=== PATIENT | female | born 1965 | race Caucasian/White ===

== ENCOUNTER 2022-06-14 12:11 | Emergency (ER) | payer OTHER, SELFPAY ==
[2022-06-14 12:19] VITALS: BP 149/78; PULSE 100; RESP 19; TEMP 38.2; O2SAT 100
--- NOTE | 2022-06-14 12:20 | ED.FEVER ---
HPI - Fever General Chief Complaint: Fever Stated Complaint: Fever/Headache/ Nausea Time Seen by Provider: 06/14/22 12:20 Source: patient Mode of arrival: ambulatory Limitations: no limitations History of Present Illness HPI Narrative: 57-year-old female presents with complaint of headache, neck aching, body aches, fever, fatigue since yesterday. Also reports nausea, decreased appetite. DHas a fever but was not able to take [id number] medication due to feeling nauseated. Did a home COVID test that was negative. Denies chest pain and shortness of breath. No known COVID exposure. All systems reviewed and negative except as noted above. Related Data Home Medications Medication Instructions Recorded Confirmed aspirin 81 mg capsule 81 mg DAILY 06/14/22 06/14/22 Allergies Allergy/AdvReac Type Severity Reaction Status Date / Time Penicillins Allergy Loss of Verified 06/14/22 12:27 Consciousness procaine Allergy Seizure Verified 06/14/22 12:27 Review of Systems Review of Systems: CONSTITUTIONAL: Reports fever,, fatigue, chills, or sweats. EYES: Denies visual changes, redness, or discharge. ENT: Denies rhinorrhea, congestion, sore throat, or otalgia. CARDIOVASCULAR: Denies chest pain, palpitations, or edema. RESPIRATORY: Denies cough or dyspnea. GASTROINTESTINAL: Denies abdominal pain, nausea, vomiting, or diarrhea. GENITOURINARY: Denies dysuria or hematuria. SKIN: Denies rash or itching. MUSCULOSKELETAL: Denies back pain, joint pain. Reports myalgia. NEUROLOGIC: Reports headache. Denies numbness, or weakness. PSYCHIATRIC: Denies anxiety or depression. All other systems reviewed are negative, except as documented in HPI. PMFSH Comments At time of signature, agree with nursing past medical, surgical, social and family history. There is no relevant family history pertinent to the presenting complaint. Exam Narrative: GENERAL: This is a well-nourished, well-developed patient. Patient is ill-appearing but no distress. HEAD: normocephalic, atraumatic. EYES: PERRL. Sclera clear/white. Vision is grossly intact. EARS: External ears normal, auditory canals clear and without drainage, TMs normal without perforation. Hearing grossly intact. NOSE: External nose normal with no obvious nasal discharge, nares without redness, no rhinorrhea. THROAT: Mucous membranes moist, posterior pharynx clear. NECK: Neck supple, non-tender without lymphadenopathy, masses or thyromegaly. CARDIOVASCULAR: Regular rate and rhythm without murmurs, gallops, or rubs. RESPIRATORY: Clear to auscultation. Breath sounds equal bilaterally. No wheezes, rales, or rhonchi. SKIN: warm, Dry, intact with no suspicious lesions or rash, good texture and turgor. NEURO: awake, alert, and oriented to person, place and time. There were no obvious focal neurologic abnormalities. EXTREMITIES: No joint tenderness, effusion, or edema noted. Course Course Level of Care: Express Care Visit Vital Signs Vital signs: Reviewed MDM - Fever MDM Narrative Medical decision making narrative: Patient is aware of diagnosis, understands and agrees to treatment plan. Anticipatory guidance given. Patient agrees to follow-up as directed and is aware of reasons to seek care at the emergency department. Portions of this record may have been created with voice recognition software Negative rapid influenza. COVID PCR pending. Differential Diagnosis Differential diagnosis: Likely viral infection and influenza Discharge Plan Discharge Clinical Impression: Acute viral syndrome Patient Disposition: Home, Self-Care Condition: Stable Instructions: Viral Syndrome (ED) Additional Instructions: Your influenza test was negative today. A COVID PCR test is pending. Quarantine until you know your test results. Continue to take [id number] medications to treat your symptoms such as Tylenol or ibuprofen. Drink plenty of water and rest. If you have shortne
[2022-06-14] MEDS: ONDANSETRON HCL ODT 4 MG TABLET SUBLINGUAL (12:39)
[2022-06-14] MEDS: ACETAMINOPHEN 500 MG TABLET 1000 MG PO (12:58)
[2022-06-14 13:28] VITALS: TEMP 37.6
[2022-06-14 13:38] VITALS: TEMP 37.6
[2022-06-14 19:59] LABS: SARS-CoV-2 RNA PCR Positive
== END 2022-06-14 13:38 | disposition home or self-care (01) ==
PROVIDERS: Emergency Provider Nurse Practitioner Family; PCP Family Medicine
DX: U07.1 COVID-19 (principal); Z90.710 Acquired absence of both cervix and uterus
CPT/HCPCS: 81003; 87804; 99213; A9270; C9803; G0463; U0003; U0005

== ENCOUNTER 2023-01-31 09:42 | Emergency (ER) | payer OTHER, SELFPAY ==
[2023-01-31 09:49] VITALS: BP 151/81; PULSE 80; RESP 20; TEMP 36.2; O2SAT 100
--- NOTE | 2023-01-31 11:22 | ED.URI ---
HPI - URI/Sore Throat General Chief Complaint: Upper Respiratory Infection Stated Complaint: Sore Throat Time Seen by Provider: 01/31/23 11:22 Source: patient, RN notes reviewed and old records reviewed Mode of arrival: ambulatory Limitations: no limitations History of Present Illness HPI Narrative: 57-year-old female who presents to [facility] with complaints of 1 day duration of sore throat, feeling tired, headache, sinus congestion drainage which is clear, chills denies any fevers. Patient reports that she took home COVID test which was negative. Patient reports that she took some NyQuil last night for her symptoms.Patient denies any ill contacts. MD elicited complaint: cough, sore throat, rhinorrhea, nasal congestion and other (headache) Pertinent past history: other (tobacco abuse) Onset (ago): day(s) (1) Pain scale (0-10): 5 Able to tolerate fluids by mouth: Yes Treatments prior to arrival: other (NyQuil) Related Data Allergies Allergy/AdvReac Type Severity Reaction Status Date / Time Penicillins Allergy Loss of Verified 01/31/23 10:00 Consciousness procaine Allergy Seizure Verified 01/31/23 10:00 Review of Systems Review of Systems: CONSTITUTIONAL:Reports malaise, chills, sweats, no fever. EYES: Denies visual changes, redness, or discharge. ENT: Reports rhinorrhea, congestion, sinus pain,no otalgia positive sore throat. CARDIOVASCULAR: Denies chest pain, palpitations, or edema. RESPIRATORY: Reports cough.? Denies dyspnea. GASTROINTESTINAL: Denies abdominal pain, nausea, vomiting, diarrhea SKIN: Denies rash or itching. MUSCULOSKELETAL: Denies myalgia. NEUROLOGIC:Reports headache. All systems reviewed & are unremarkable except as noted in HPI and below [facility] Surgical History Surgical History (Updated 02/02/23 @ 08:33 by Meghan Kong NP) History of hysterectomy Social History Social History (Updated 02/02/23 @ 08:38 by Meghan Kong NP) Smoking packs per day: 0.5 Smoking cigarettes per day: 10.0 Years smoked: 40 Smoking pack-years: 20.00 Smoking status: Current every day smoker Tobacco type: cigarettes Alcohol intake: current Alcohol use details: rare social Substance use type: does not use Living arrangements: with family Gender identity (if verbalized by the patient): Female Comments At time of signature, agree with nursing past medical, surgical, social and family history. There is no relevant family history pertinent to the presenting complaint Exam Narrative: GENERAL: Well-appearing, well-nourished, and in no acute distress. HEAD: Normocephalic EYES: PERRLA, conjunctivae clear ENT: Nares clear, turbinates edematous and erythematous, clear discharge. Mucous membranes moist. TM pearly underwood with dull light reflex bilaterally; no tragal tenderness. Oropharynx erythematous without lesions. Tonsils red not enlarged and without exudate, no drooling, no hoarseness, no trismus, uvula midline.post nasal drainage NECK: Supple. No lymphadenopathy CHEST: Clear to auscultation, breath sounds equal. No wheezing, rhonchi, rales, or stridor. No respiratory distress, speaks in full sentences. cough noted,SAO2 100% on room air HEART: Regular rate and rhythm. No murmur heard. SKIN: Warm, dry, no rash. NEURO: Alert and oriented x3. PSYCH: Normal mood and affect Course Course Emergency Course: Patient is aware of diagnosis, understands and agrees to treatment plan.? Anticipatory guidance given.? Patient agrees to follow-up as directed and is aware of reasons to seek care at the emergency department. Portions of this record may have been created with voice recognition software Level of Care: Express Care Visit Vital Signs Vital signs: Vital Signs Temperature 36.2 C L 01/31/23 09:49 Pulse Rate 80 01/31/23 09:49 Respiratory Rate 20 01/31/23 09:49 Blood Pressure 151/81 H 01/31/23 09:49 Pulse Oximetry 100 01/31/23 09:49 Oxygen Delive
== END 2023-01-31 11:35 | disposition home or self-care (01) ==
PROVIDERS: Emergency Provider Registered Nurse; PCP Family Medicine
DX: J02.9 Acute pharyngitis, unspecified (principal); F17.210 Nicotine dependence, cigarettes, uncomplicated
CPT/HCPCS: 87081; 87880; 99213; G0463